=== PATIENT | female | born 1985 | race Caucasian/White ===

== ENCOUNTER 2016-09-15 03:23 | Emergency (ER) | payer MEDICAID ==
[2016-09-15] MEDS ORDERED: CEFTRIAXONE 1 GM VIAL ONE (08:22)
[2016-09-15] MEDS ORDERED: SODIUM CHLORIDE 0.9% 100 ML IV ONE (08:23)
== END 2016-09-15 08:55 | disposition home or self-care (01) ==
LOC: ER 03:23
CPT/HCPCS: 96365

== ENCOUNTER 2016-09-19 20:22 | Inpatient (IN) | payer MEDICAID ==
[~2016-09-19] VITALS: Ht 176.5 cm; Wt 71.2 kg
[~2016-09-19 20:22] MED LIST: ACETAMINOPHEN 1,000 MG/100 ML IV ONE; DEXAMETHASONE 4 MG/ML VIAL ONE; FENTANYL 100 MCG/2 ML AMP ONE; GLYCOPYRROLATE 0.2 MG/ML VIAL ONE; NEOSTIGMINE 10 MG/10 ML VIAL ONE; PROPOFOL 20 ML PER ML IV ONE; ROCURONIUM 50 MG VIAL IV ONE
[2016-09-19] MEDS ORDERED: CEFTRIAXONE 1 GM VIAL ONE (23:46)
[2016-09-19] MEDS ORDERED: KETOROLAC 30 MG/ML VIAL ONE (23:46)
[2016-09-19] MEDS ORDERED: SODIUM CHLORIDE 0.9% 1,000 ML ONE (23:46)
[2016-09-19] MEDS ORDERED: SODIUM CHLORIDE 0.9% 100 ML IV ONE (23:46)
[2016-09-19] MEDS ORDERED: ONDANSETRON 4 MG VIAL ONE (23:47)
[2016-09-20] VITALS (18 sets, daily range): BP systolic 90–120; RESP 12–20; TEMP 97.3–98.6; Ht 176.5 cm; Wt 71.2 kg
[2016-09-20] MEDS ORDERED: DILAUDID 1 MG/ML AMP IV PRN ×3 (01:35→13:00)
[2016-09-20] MEDS ORDERED: DILAUDID 1 MG/ML AMP ONE (01:50)
[2016-09-20] MEDS: [UNRECOGNIZED DRUG - OTHER] IV SCH ×2 (03:03→11:23)
[2016-09-20] MEDS: D5 IV SCH ×2 (03:03→11:23)
[2016-09-20] MEDS: ONDANSETRON 4 MG VIAL IV PUSH PRN ×3 (03:54→11:56)
[2016-09-20] MEDS ORDERED: LEVOFLOXACIN 500 MG/100 ML 100 ML IV ONE (07:50)
[2016-09-20] MEDS ORDERED: KETOROLAC 15 MG/ML VIAL IV ONE (08:05)
[2016-09-20] MEDS ORDERED: ONDANSETRON 4 MG VIAL IV ONE (12:30)
[2016-09-20] MEDS ORDERED: LIDOCAINE 1% BUFFERED 1 ML SYR INTRADERM PRN (12:30)
[2016-09-20] MEDS ORDERED: GLYCOPYRROLATE 0.2 MG/ML VIAL IV ONE (12:30)
[2016-09-20] MEDS ORDERED: LACT RINGERS 1,000 ML IV SCH (12:30)
[2016-09-20] MEDS ORDERED: MIDAZOLAM 2 MG/2 ML INJ IV ONE (12:30)
[2016-09-20] MEDS ORDERED: SCOPOLAMINE PATCH TRANSDERM ONE (12:30)
[2016-09-20] MEDS ORDERED: ONDANSETRON 4 MG VIAL IV PRN (13:00)
[2016-09-20] MEDS ORDERED: MEPERIDINE 25 MG/ML IV PRN (13:00)
[2016-09-20] MEDS ORDERED: MORPHINE 2 MG/ML SYR IV PRN (13:00)
[2016-09-20] MEDS ORDERED: MORPHINE 4 MG/ML SYR IV PRN (13:00)
[2016-09-20] MEDS ORDERED: OXYCODONE 5 MG TAB PO PRN (13:00)
[2016-09-20] MEDS: KETOROLAC 15 MG/ML VIAL IV SCH ×2 (16:00→21:11)
[2016-09-21] MEDS: D5 IV SCH (03:11)
[2016-09-21] MEDS: [UNRECOGNIZED DRUG - OTHER] IV SCH (03:11)
[2016-09-21 03:40] VITALS: BP_SYST 101; RESP 16; TEMP 97.6
[2016-09-21 07:30] VITALS: BP_SYST 106; RESP 16; TEMP 98.1
[2016-09-21] MEDS: KETOROLAC 15 MG/ML VIAL IV SCH (09:34)
[2016-09-21 11:07] VITALS: BP_SYST 106; RESP 16; TEMP 98.1
[2016-09-21 11:16] VITALS: BP_SYST 105; RESP 16; TEMP 98.3
[2016-09-21 11:17] VITALS: RESP 16
[2016-09-21] MEDS ORDERED: REMOVE TRANSDERMAL PATCH TOPICAL ONE (13:00)
[2016-09-23] MEDS ORDERED: REMOVE SCOPALAMINE PATCH XX ONE (12:30)
== END 2016-09-21 18:30 | disposition home or self-care (01) | DRG 670 ==
LOC: ER 20:22 → ENPENDDIS 20:23 → EMR 20:23 → DELPENDDIS 20:23 → 5THE 09-20 02:45 → OBSVTOIN 09-21 11:35 → ENPENDDIS 09-21 11:35
PROVIDERS: ADMIT Urology; ATTEND Urology
PROC: 0TC68ZZ Extirpation of Matter from Right Ureter, Via Natural or Artificial Opening Endoscopic (ICD-10-PCS; principal; 2016-09-21)
PROC: 0T768DZ Dilation of Right Ureter with Intraluminal Device, Via Natural or Artificial Opening Endoscopic (ICD-10-PCS; 2016-09-21)
CPT/HCPCS: 36415; 74000; 74176; 76000; 80053; 81001; 83690; 84703; 85025; 87088; 88300; 88360; 96361; 96365; 96375

== ENCOUNTER 2016-09-21 16:01 | Emergency (ER) | payer MEDICAID | END 2016-09-21 21:43 | disposition home or self-care (01) | LOC: ER 16:01 | CPT/HCPCS: 36415; 80053; 81001; 85025; 87088 ==

== ENCOUNTER 2016-10-13 21:24 | Emergency (ER) | payer MEDICAID | END 2016-10-14 00:32 | disposition home or self-care (01) | LOC: ER 21:24 | DX: N20.0 Calculus of kidney (principal); Z87.442 Personal history of urinary calculi | CPT/HCPCS: 74000; 80053; 81003; 84703; 85025 ==

== ENCOUNTER 2016-10-21 19:02 | Emergency (ER) | payer MEDICAID ==
[2016-10-21] MEDS ORDERED: CEFTRIAXONE 1 GM VIAL ONE (21:28)
[2016-10-21] MEDS ORDERED: SODIUM CHLORIDE 0.9% 100 ML IV ONE (21:28)
[2016-10-21] MEDS ORDERED: ONDANSETRON 4 MG VIAL ONE (21:28)
[2016-10-21] MEDS ORDERED: KETOROLAC 30 MG/ML VIAL ONE (21:28)
== END 2016-10-21 22:40 | disposition home or self-care (01) ==
LOC: ER 19:02
DX: N10 Acute pyelonephritis (principal); R31.9 Hematuria, unspecified; I88.0 Nonspecific mesenteric lymphadenitis; Z87.442 Personal history of urinary calculi
CPT/HCPCS: 36415; 74176; 80053; 81001; 83690; 84703; 85025; 87088; 96365; 96375